=== PATIENT | male | born 1970 | race Two or more races ===

== ENCOUNTER 2024-11-18 04:10 | Emergency (ER) | payer OTHER ==
[~2024-11-18] VITALS: Ht 172.7 cm; Wt 82.1 kg
[2024-11-18] MEDS ORDERED: PROTONIX20 MG PO (04:28)
[2024-11-18] MEDS ORDERED: NEXIUM2.5 MG PO (04:29)
== END 2024-11-18 08:52 | disposition home or self-care (01) ==
LOC: ER 04:13
DX: R20.0 Anesthesia of skin (principal); Z88.2 Allergy status to sulfonamides; M50.323 Other cervical disc degeneration at C6-C7 level